=== PATIENT | female | born 1935 | race Caucasian/White ===

== ENCOUNTER 2018-09-05 18:56 | Inpatient (IN) ==
[2018-09-05 20:18] LABS: URINE SOURCE CATH
[2018-09-05 20:25] LABS: BASO# 0.02 X1000 (0.0-0.2); BASO% 0.1 % (0.0-0.8); EOS# 0.02 X1000 (0.0-0.7); EOS% 0.1 % (0.0-10.0); HEMATOCRIT 48.3 % (37.0-47.0); HEMOGLOBIN 16.2 g/dL (12.0-16.0); IMM GRAN# 0.08 X1000 (0.0-0.04); IMM GRAN% 0.4 % (0.0-0.5); LYMPH% 3.7 % (20.5-51.1); MCH 29.9 PG (27-31); MCHC 33.5 g/dL (33-37); MCV 89.1 FL (81-99); MONO# 1.56 X1000 (0.11-0.59); MONO% 8.3 % (1.7-9.3); MPV 10.3 FL (7.4-10.4); NEUT% 87.4 % (42.2-75.2); PLT 331 X1000 (130-400); RBC 5.42 XMIL (4.2-5.4); RDW 15.2 % (11.5-14.5); WBC 18.88 X1000 (4.8-10.8)
[2018-09-05 20:27] LABS: BILIRUBIN URINE SMALL (NEGATIVE); BLOOD URINE NEGATIVE (NEGATIVE); COLOR ORANGE; GLUCOSE URINE NEGATIVE (NEGATIVE); KETONE URINE NEGATIVE (NEGATIVE); LEUKOCYTES URINE NEGATIVE (NEGATIVE); NITRITE URINE NEGATIVE (NEGATIVE); PROTEIN URINE TRACE mg/dL (NEGATIVE); TURBIDITY URINE HAZY (CLEAR); UROBILINOGEN URINE 6 mg/dL (NORMAL)
[2018-09-05 20:32] LABS: UR EPITHELIAL CELLS <10 /HPF (<10); URINE BACTERIA NEGATIVE /HPF; URINE RBC <10 /HPF (<10); URINE WBC <10 /HPF (<10)
[2018-09-05 20:40] LABS: URINE CASTS NONE SEEN; URINE YEAST NONE SEEN
[2018-09-05] MEDS ORDERED: NS IV ONE ×2 (20:51)
[2018-09-05] MEDS ORDERED: VANCOMYCIN 1 GM/NS 1 GM/250 ML IVPB IV ONE (20:52)
[2018-09-05] MEDS ORDERED: ZOSYN 3.375 GM in NS 50 ML IV ONE (20:52)
[2018-09-05 21:16] LABS: ALB/GLOB RATIO 0.9; ALBUMIN 3.9 g/dL (3.5-5.0); CREATININE 1.7 mg/dL (0.5-0.9); POTASSIUM 4.1 mmol/L (3.5-5.1); TOTAL BILIRUBIN 1.13 mg/dL (0.20-1.00); TOTAL PROTEIN 8.4 g/dL (6.3-8.3)
--- NOTE | 2018-09-05 21:57 | Diag Imaging Result Doc PS360 ---
EXAM: CHEST-1 VIEW INDICATION: pale, has crackles TECHNIQUE: One view COMPARISON: 07/16/2013 FINDINGS: There is marked distention of the colon. This causing elevation of the right hemidiaphragm. There are thickened interstitial markings throughout both lungs similar to the previous study likely representing fibrosis. A component of edema is also possible. Cardiac silhouette is stable. IMPRESSION: 1.Marked distention of the colon. 2.Fibrotic changes and possible superimposed edema throughout both lungs. Electronically signed by Phong Daniel 09/05/2018 9:54 PM
[2018-09-05] MEDS ORDERED: NS 0 ML ONE (22:22)
[2018-09-05] MEDS ORDERED: ZOFRAN IV PRN (22:43)
[2018-09-05] MEDS ORDERED: PEPCID IV ONE (22:52)
[2018-09-05] MEDS ORDERED: SODIUM CHLORIDE 0.9% INJ ONE (22:52)
[2018-09-05] MEDS ORDERED: LEVOPHED 8 MG in D5 1/2 NS 250 ML IV SCH (23:45)
[2018-09-05] MEDS ORDERED: NS 250 ML IV ONE (23:47)
[2018-09-05 23:48] LABS: INR 1.49; PROTIME 19.1 Seconds (11.0-16.0)
[2018-09-06] MEDS: NS 1,000 ML IV SCH ×3 (01:36→13:49)
[2018-09-06 02:27] LABS: CHOLESTEROL 124 mg/dL (0-200); HDL 42 mg/dL (45-65); LDL 59 mg/dL; TRIGLYCERIDES 116 mg/dL (35-135); VLDL 23 mg/dL
[2018-09-06] MEDS: ZOSYN 2.25 GM in NS 50 ML IV SCH ×4 (02:48→21:04)
--- NOTE | 2018-09-06 02:56 | HISTORY AND PHYSICAL ---
CHIEF COMPLAINT: Abdominal pain, nausea and vomiting. HISTORY OF PRESENT ILLNESS: Ms. Blackman is an 83-year-old female who previously saw Alexandra Beckford MD, outpatient. I believe that she stopped taking all medications and following up with any physician around 4 years ago. The family, as well as her, are poor historians about her previous medical history. She was on oxygen daily which she stopped using, however, they were unable to tell me why. She also has a history of hypertension and hyperlipidemia, however, she stopped taking those medications as well. She states that she has had no other medical problems in the past. The , who is at the bedside, tells me that they were at home and up until yesterday she had had normal days. Yesterday she was up reading the paper. She ate breakfast as usual. Afterwards she had some vomiting. She had 1 more episode of vomiting yesterday. Some time during the night she had a small episode, and then today she had another episode of emesis which was on her shirt that the son was able to see. He felt as if "it looked like chocolate pudding," in his own words. On arrival to the emergency room the patient was tachycardic and tachypneic. She was not febrile; however, the stated that she had had a high fever the last couple of days. CT scan showed dilated loops of bowel with a large colonic stool burden. The rectum was markedly distended with stool, measuring 8 cm, questionable fecal impaction. Also, pneumatosis coli was noted; however, it stated that there were no inflammatory changes or thickening of the wall to suggest ischemia. Also noted were some fibrotic changes in her lower lungs. The patient will be admitted to ICU for further monitoring and evaluation. PAST MEDICAL HISTORY: See HPI. PREVIOUS SURGICAL HISTORY: Some type of hernia repair many years ago per the family. SOCIAL HISTORY: No tobacco, alcohol or illicit drugs. Still lives at home with her . FAMILY HISTORY: Hypertension and CVA in first-degree relatives. ALLERGIES: No known drug allergies. HOME MEDICATION: No medications. REVIEW OF SYSTEMS: Fourteen-point review of systems was conducted with the patient. She was positive for fever, chills, nausea, vomiting, abdominal pain. All other systems were evaluated and negative. PHYSICAL EXAMINATION: VITAL SIGNS: Temperature 98.6, pulse 114, respirations 25-33, blood pressure 103/75, oxygen saturation 94% on 2 nasal cannula. GENERAL: Chronically ill-appearing 83-year-old female lying in the ER stretcher, is oriented to person, place and situation, disoriented to time. Answers all questions for the most part appropriately. Family is at the bedside, supportive. She is in minimal distress at this time. HEENT: Head is atraumatic, normocephalic. Pupils equal, round, reactive to light. Extraocular eye movements intact. Sclerae are mildly jaundiced. Conjunctivae are pink. Oral mucosa is dry. NECK: Supple. No JVD. No thyromegaly. Trachea is midline. No cervical lymphadenopathy. CARDIAC: S1, S2 appreciated. No murmurs, gallops or rubs. LUNGS: Mild crepitations scattered throughout the lung jorgensen, decreased bilaterally. No rhonchi, no wheezing. Symmetric rise and fall with respirations. ABDOMEN: Soft, mildly distended, diffusely tender to palpation. Bowel sounds hypoactive in all 4 quadrants. No organomegaly. EXTREMITIES: No clubbing, cyanosis or edema. One-plus pedal pulses bilaterally. GENITOURINARY: Deferred. SKIN: Very dry and flaky, otherwise intact and warm. No acute lesions or rash were noted. NEUROLOGICAL: Oriented to person, place and situation. Disoriented to time. She is awake and alert. No focal motor deficits. Otherwise nonfocal examination. DIAGNOSTIC DATA: CT of the abdomen: Please see HPI. Also note that there was an abdominal aortic aneurysm measuring 5.9 cm in diameter with no evidence of rupture. LABORATORY DATA: WBC 18.88, hemoglobin 16.2, hematocrit 48.3, platelet count 331,000. Sodium 135, potassium 4.1, chloride 89, carbon dioxide 20, BUN 66, creatinine 1.7, glucose 118. Total bilirubin 1.13. Plasma lactate 5.3. On recheck it was 3.7. Urine unremarkable. ASSESSMENT AND PLAN: 1. Probable sepsis. We assume that this is originating from the abdomen. She was given Zosyn and vancomycin in the emergency room. Blood cultures have been sent. Will continue Zosyn renally dosed while cultures are pending. 2. Constipation with multiple dilated loops of bowel. Questionable partial small-bowel obstruction. Will place a nasogastric tube, consult Gastroenterology as well as Surgery. Continue IV fluids. 3. Fluid volume depletion. The patient was bolused in the emergency room, as noted. Will be continued in ICU. 4. History of hypertension, now hypotensive. Will add Levophed to the patient's profile to be started per protocol if necessary. Fluid rehydration has been started. 5. Abdominal aortic aneurysm noted at 5.9 cm in diameter. This will need to be followed up by Primary Care. 6. Acute kidney injury. No baseline renal function is in the computer. Unsure what the patient's normal renal function is. This appears to be acute in nature, however, with the patient having vomiting, will recheck laboratory data tomorrow morning. 7. Further recommendations per patient's clinical course. Dictated by GARETH Colon for Dominique Elder MD cc: GARETH Colon MD M. Neel Roberts, MD Pt's exam notable for decreased skin turgor with decreased pulse volume. She had significant tenderness without peritonism. Abd. was also distended. Irregular rhythm. Above plan discussed with [facility]. HOME
[2018-09-06] MEDS ORDERED: HALDOL IV ONE (05:14)
[2018-09-06] MEDS ORDERED: NS 500 ML IV ONE ×2 (05:16→12:09)
[2018-09-06 06:09] LABS: BASO# 0.01 X1000 (0.0-0.2); BASO% 0.1 % (0.0-0.8); HEMATOCRIT 43.7 % (37.0-47.0); HEMOGLOBIN 14.7 g/dL (12.0-16.0); IMM GRAN# 0.05 X1000 (0.0-0.04); IMM GRAN% 0.5 % (0.0-0.5); LYMPH# 0.44 X1000 (1.2-3.4); LYMPH% 4.5 % (20.5-51.1); MCH 30.4 PG (27-31); MCHC 33.6 g/dL (33-37); MCV 90.3 FL (81-99); MONO# 0.38 X1000 (0.11-0.59); MONO% 3.9 % (1.7-9.3); MPV 10.1 FL (7.4-10.4); PLT 244 X1000 (130-400); RBC 4.84 XMIL (4.2-5.4); RDW 15.3 % (11.5-14.5); WBC 9.68 X1000 (4.8-10.8)
[2018-09-06 06:27] LABS: CALCIUM 7.8 mg/dL (8.8-10.2); CREATININE 1.5 mg/dL (0.5-0.9); MAGNESIUM 2.5 mg/dL (1.5-2.7); POTASSIUM 3.6 mmol/L (3.5-5.1)
[2018-09-06 06:32] LABS: LYMPHS 5 % (21-51); MONO 5 % (1-9); SEGS 90 % (42-75)
[2018-09-06 07:05] LABS: URINE SOURCE CATH
--- NOTE | 2018-09-06 07:17 | Diag Imaging Result Doc PS360 ---
EXAM: CT ABDOMEN/PELVIS W/O CONTRAST 09/05/2018 HISTORY: abd distended, vomiting /Dr Whitehead verbal w/o gfr 29 TECHNIQUE: This exam was performed using automated exposure control, adjustment of mA or kV according to patient size, and/or use of iterative reconstruction technique. COMMENT: There are no previous abdominal studies available for comparison. Where possible comparison is made with the previous thoracic CT of 08/07/2012. There is some subpleural fibrosis present particularly in the lower lobes, where there is traction bronchiectasis and honeycombing. These findings were also present at the time the previous study. There are retained esophageal fluid and solid contents. There is a large hiatal hernia. The stomach is somewhat distended with fluid. There is a fairly large amount of gas and some fecal debris throughout the colon. There is a large amount of stool present in the distended rectum. There is diverticulosis coli without evidence of acute diverticulitis. The urinary bladder is distended. There is mild bilateral hydronephrosis. There are bilateral renal cysts the largest on the right side is over 10.4 cm in diameter. There is extensive atherosclerotic calcification in the aorta. There is an infrarenal abdominal aortic aneurysm which measures in excess of 6.2 cm. This was not previously imaged. The small bowel is not distended. There is no evidence of free air or free fluid. There are severe degenerative changes in the right hip. There are degenerative disc changes in the lumbar spine. There is no evidence of acute bony abnormality. IMPRESSION: 1. Severe constipation and fecal impaction. 2. Distended urinary bladder and mild bilateral hydronephrosis probably a result of urinary retention. 3. Abdominal aortic aneurysm in excess of 6 cm. 4. Pulmonary fibrosis. Electronically signed by Robert Domingo 09/06/2018 7:14 AM
[2018-09-06 07:18] LABS: BILIRUBIN URINE SMALL (NEGATIVE); BLOOD URINE NEGATIVE (NEGATIVE); COLOR ORANGE; GLUCOSE URINE NEGATIVE (NEGATIVE); KETONE URINE NEGATIVE (NEGATIVE); LEUKOCYTES URINE TRACE (NEGATIVE); NITRITE URINE NEGATIVE (NEGATIVE); PROTEIN URINE 30 mg/dL (NEGATIVE); SP GRAVITY URINE 1.022; TURBIDITY URINE HAZY (CLEAR); UR EPITHELIAL CELLS >10 /HPF (<10); URINE BACTERIA NEGATIVE /HPF; URINE RBC <10 /HPF (<10); URINE WBC <10 /HPF (<10); UROBILINOGEN URINE 4 mg/dL (NORMAL)
[2018-09-06 07:24] LABS: URINE YEAST PRESENT
[2018-09-06 07:25] LABS: URINE CASTS GRANULAR PRESENT; URINE CRYSTALS NONE SEEN; URINE SMALL ROUND CELLS NONE SEEN
--- NOTE | 2018-09-06 07:26 | EKG Report ---
Test Performed on : 09/06/2018 06:43:50 AM Test Reason : chest pain Blood Pressure : / mmHG Vent. Rate : 112 BPM Atrial Rate : 112 BPM P-R Int : 150 ms QRS Dur : 126 ms QT Int : 340 ms P-R-T Axes : 090 049 248 degrees QTc Int : 464 ms Sinus tachycardia. with premature supraventricular complexes. Right bundle branch block T wave abnormality, consider inferolateral ischemia Abnormal ECG When compared with ECG of 05-SEP-2018 20:53, (Unconfirmed) T wave inversion now evident in Inferior leads T wave inversion now evident in Lateral leads Confirmed by Oz MARTINEZ, Miles Mccann ([id number]) on 09/06/2018 5:09:40 PM
--- NOTE | 2018-09-06 07:47 | EKG Report ---
Test Performed on : 09/05/2018 8:53:19 PM Test Reason : pale, tachy Blood Pressure : / mmHG Vent. Rate : 119 BPM Atrial Rate : 119 BPM P-R Int : 168 ms QRS Dur : 122 ms QT Int : 356 ms P-R-T Axes : 077 001 054 degrees QTc Int : 500 ms Sinus tachycardia. with premature atrial complexes. Right bundle branch block Possible Lateral infarct , age undetermined Abnormal ECG No previous ECGs available Unconfirmed Result
--- NOTE | 2018-09-06 07:57 | Diag Imaging Result Doc PS360 ---
EXAM: CHEST-PORTABLE INDICATION: TUBE PLACEMENT TECHNIQUE: One view COMPARISON: 09/05/2018 FINDINGS: The NG tube is coiled above the diaphragm and is assumed to be in the lumen of a large hiatal hernia that can be seen on a recent CT. Interstitial thickening bilaterally suggesting fibrosis is unchanged. No new consolidation is identified. Cardiac silhouette is stable. IMPRESSION: Interval placement of NG tube as described above. Electronically signed by Phong Daniel 09/06/2018 7:55 AM
[2018-09-06] MEDS ORDERED: PHENERGAN IV PRN (08:10)
[2018-09-06] MEDS ORDERED: SODIUM CHLORIDE 0.9% INJ PRN (08:10)
[2018-09-06] MEDS ORDERED: ATIVAN IV PRN (08:11)
[2018-09-06] MEDS ORDERED: SODIUM CHLORIDE 0.9% INJ SCH (08:15)
[2018-09-06] MEDS ORDERED: PEPCID IV SCH (08:15)
[2018-09-06] MEDS ORDERED: LEVAQUIN 250 MG/D5W 250 MG/50 ML IVPB IV SCH (08:15)
--- NOTE | 2018-09-06 08:38 | PROGRESS NOTE ---
DATE: 09/06/2018 SUBJECTIVE: Ms Blackman is awake and easily arousable. She answers questions appropriately. She is oriented to name and place. She knew me. She was admitted with sepsis syndrome. She remains tachycardic, heart rates ranging from 104 to 111. She is tachypneic. Blood pressures have been low. Her MAP pressures were in the 50s. Chest x-ray showed severe pulmonary fibrosis. She does have bronchiectasis but stopped taking all of her medicines. Urine and blood cultures are pending. CT scan of the abdomen and pelvis demonstrated a fecal impaction but no obvious evidence of obstruction or abscess. She had had intractable nausea and vomiting. The nausea has improved with placement of an NG tube. She is maintaining O2 saturations of 91 to 93 percent on 2 L of O2. OBJECTIVE: Vital signs: Temperature 97.6 degrees, pulse 111, respiratory rate 38, blood pressure 94/58. General: This is a chronically ill-appearing, 83-year-old lady. She is awake and easily arousable. She is oriented to name and place. She answers questions appropriately. Cardiovascular: Tachycardic. Regular S1, S2. Lungs: Distant breath sounds with increased period of expiration with crackles in the right base. Abdomen: Distended with hypoactive bowel sounds. Extremities: Trace edema. LABORATORY DATA: A CBC demonstrated a white count of 9.68, hemoglobin 14.7, hematocrit 43.7, and a platelet count of 244,000. Electrolytes demonstrated the following. Sodium 135, potassium 3.6, chloride 97, CO2 20, BUN 65, creatinine 1.5, glucose 92. ASSESSMENT AND PLAN: 1. Severe sepsis. She continues to be tachycardic and tachypneic. She has renal dysfunction. Her creatinine was 1.7 on admission. Creatinine is down to 1.5. Her MAP pressures are low. She is now all requiring Levophed for pressure support. Given the nausea and vomiting, I suspect that she has aspirated. We will continue Zosyn and I will add intravenous Levaquin. She received a dosage of vancomycin last night. We will continue supplemental O2 and I will add nebulizer treatments. 2. Ileus. We will continue an NG tube to low [place] suction and I will recheck a flat and upright abdominal film in the morning. 3. Large abdominal aortic aneurysm. She has an abdominal aneurysm of 6.2. Given the size of the aneurysm, she is certainly at high risk for rupture. At this point in time, I believe that she would be an extraordinarily high surgical risk and in fact, I do not believe that she will ever be an appropriate surgical candidate. cc: Alexandra Beckford MD
[2018-09-06] MEDS ORDERED: DULCOLAX PR SCH (12:15)
--- NOTE | 2018-09-06 12:19 | Diag Imaging Result Doc PS360 ---
EXAM: KUB ABDOMEN 09/06/2018 HISTORY: evaluate for constipation or obstruction TECHNIQUE: KUB COMMENT: There is a large amount of gas and stool in the colon including the rectum. There is a calcified fusiform abdominal aortic aneurysm which has been previously described on CT on 09/05/2018. IMPRESSION: Severe constipation. Electronically signed by Robert Domingo 09/06/2018 12:17 PM
--- NOTE | 2018-09-06 14:17 | GASTROENTEROLOGY CONSULTATION ---
DATE: 09/06/2018 REQUESTING PHYSICIAN: Alexandra Beckford MD REASON FOR CONSULTATION: Constipation, bowel distention. HISTORY OF PRESENT ILLNESS: Ms. Blackman is an 83-year-old female, who was admitted on 09/06/2018 for worsening abdominal pain, nausea, vomiting, abdominal distention. She had a CT scan done on 08/30/2018 which showed: 1. Severe constipation and fecal impaction. 2. Retained esophageal fluid and solid contents. 3. Large hiatal hernia. 4. Some subpleural fibrosis in the lower lobes in the lungs and traction bronchiectasis and honeycombing. 5. Stomach is somewhat distended with fluid. 6. Fairly large amount of gas and some fecal debris throughout the colon. There was a large amount of stool present in the distended rectum. There is diverticulosis coli without evidence of acute diverticulitis. There is mild bilateral hydronephrosis. There are bilateral renal cysts; the largest on the right side is over 10.4 cm. There is extensive atherosclerotic calcification in the aorta. There is infrarenal abdominal aortic aneurysm measuring 6.2 cm which was not seen or previously imaged. There is no evidence of free air or free fluid. There are severe degenerative changes in the right hip. There are degenerative disk changes in the lumbar spine. 7. Gastrointestinal bleed with further management. The patient has decline in respiratory status. She is on a full face mask. She had NG tube placed recently. She had some coffee- grounds in the NG tube. The history is obtained from the patient's records and the nursing staff. The patient could not provide me any information. PAST MEDICAL HISTORY: Hypertension, hyperlipidemia. PAST SURGICAL HISTORY: Hernia surgery. SOCIAL HISTORY: No history of alcohol, tobacco, illicit drugs. She lives at home with her . FAMILY HISTORY: Hypertension, CVA in first-degree relatives. ALLERGIES: No known drug allergies. MEDICATIONS IN THE HOSPITAL: Pepcid b.i.d., Levaquin, dextrose, norepinephrine drip, Ativan, normal saline, Phenergan, Zosyn and she is currently n.p.o. REVIEW OF SYSTEMS: Could not be obtained. The patient did not answer any questions. PHYSICAL EXAMINATION: Vital Signs: Temperature 97.2, pulse 116, respiratory of 37, blood pressure 135/49, satting 98% on Ventimask 50% FiO2. Body weight of 132 pounds 3.2 ounces. BMI 23.4 kg/m2. General: Moderately well-nourished, lying in bed, currently tachypneic on a face mask. NG tube in place. HEENT: No pallor. No icterus. Signs of tachypnea noted. Face mask noted in place. NG tube noted in place. Was draining coffee-ground liquid. Abdomen: Distended, tympanic on percussion. No guarding. Extremities: No cyanosis, clubbing. Neurologic: Neuro-valladares, she did not answer any of my questions. Her eyes are open, but she was not communicating. LABS: Hemoglobin and hematocrit is 14.7 and 43.7, white count of 9.68, platelet count of 244, MCV of 90.3. Sodium 135, potassium 3.6, chloride 97, bicarbonate 20, anion gap 18. BUN of 65, creatinine 1.5, glucose of 92, calcium 7.8, magnesium 2.5, total bilirubin 1.13. AST 36, ALT 30, alkaline phosphatase 130, total protein is 8.4, albumin of 3.9. Lactate of 4.1. Urinalysis: Small bilirubin. Trace leukocytes and trace protein. MICROBIOLOGY: Urine culture is currently pending. Blood culture is currently pending. Stool for occult blood was negative. IMAGING: In the CT scan described in HPI. We will obtain a KUB today. IMPRESSION AND PLAN: 1. Sepsis. 2. Abdominal distention. 3. Fecal impaction in the left colon and rectum. 4. Bowel obstruction from fecal impaction. 5. Large abdominal aortic aneurysm. 6. Diverticulosis in the colon 7. Mild bilateral hydronephrosis and distended urinary bladder. 8. Question of a urinary tract infection. 9. Pulmonary fibrosis. RECOMMENDATIONS: We will continue with aggressive resuscitation. She will continue IV fluids. We will keep her on IV Pepcid b.i.d. She will continue antibiotics per the primary care team. She has been [place] cultured. We will try some tap water enemas to help with the rectal impaction. She will continue on NG tube intermittent suction. The patient is critical at this time. We will check a KUB today and tomorrow. We will need to follow closely. The above plans discussed with the patient's nursing staff at bedside. All questions answered. We will follow along. Please call us with any further questions. cc: MD Alexandra Tbaares MD MTDD
--- NOTE | 2018-09-06 14:47 | INFECTIOUS DISEASE CONSULT REP ---
DATE: 09/06/2018 CONCLUSION: The patient is admitted to the hospital in what seems to be a septic condition. I suspect that most likely it is due to a blocked urinary tract even though the patient's urinalysis did not show white cells or bacteria. RECOMMENDATIONS: In view of how the patient's white blood cell count has improved and the creatinine has improved, I think it is very reasonable to continue with the patient's 2 antibiotics she is getting now which are Zosyn and Levaquin. I have ordered a bilateral renal ultrasound to make sure that the patient's hydronephrosis has resolved after a [place] catheter was inserted into the bladder, which initially was distended as well. DISCUSSION: The patient was unable provide a history. I obtained the history from the patient's son. The patient was doing well up until approximately 3 days ago when she became weak and had vomiting. She did not complain of dysuria. She had not had any fever or chills. She had not had diarrhea. Studies thus far show the initial white blood cell count was [address] and today it is 9680, hemoglobin is 14.7, platelet count is 244,000. The patient's initial creatinine was 1.7 and today it is 1.5, and the GFR has gone from 29 to 33. Liver function studies show a slight elevation of the alkaline phosphatase at 130 and the AST at 36. As mentioned above, the urinalysis did not show any white cells or bacteria. The patient's chest x-ray showed bilateral fibrosis. CT scan of the abdomen and pelvis showed severe constipation with fecal impaction and a distended bladder with bilateral hydronephrosis. Also, there was an abdominal aortic aneurysm that was greater than 6 cm and also pulmonary fibrosis was noted in the lungs. PAST MEDICAL HISTORY/REVIEW OF SYSTEMS: This was unable to be obtained from the patient. WIRE REPAIRER HISTORY: She is a 4, para 4, AB 0. PREVIOUS HOSPITALIZATIONS AND OPERATIONS: She has had labor and deliveries and a hiatal hernia repair. MEDICAL DISEASES: Positive for hypertension and now for, in addition to that, an abdominal aortic aneurysm. INFECTIOUS DISEASE HISTORY: Negative for pneumonia and UTI. FAMILY HISTORY: Positive for hypertension and stroke. SOCIAL HISTORY: The patient is . She lives in [place]. She does not smoke cigarettes, drink alcoholic beverages or abuse drugs. Approximately 3 years ago, she stopped taking all of her medications. She does not have any pets. PHYSICAL EXAMINATION: Vital signs: Temperature is 97.2 degrees, pulse 116, respirations 37, blood pressure 125/49. Patient is 5 feet 3 inches tall, she weighs 132 pounds. General: This is an ill-appearing elderly female. She is in no acute distress, however. Head/eyes/ears/nose/throat: She did not follow my request to move her arms or to close her eyes. There is no drainage from the nose or ears. Neck: No meningismus. Lungs: Clear to auscultation. Cardiovascular: Heart rate was regular. Abdomen: Soft and nontender. Neurologic: The patient appeared to be in a delirium. She, as mentioned above, did not follow request to move her arms or legs or to close her eyelids. There was no tremor. Integument: No rash was noted. I am signing off the patient's case but I am available to see her prn. Thank you for the consult. cc: MD Alexandra Sanchez MD MTDD
[2018-09-06] MEDS ORDERED: MORPHINE IV PRN (17:28)
--- NOTE | 2018-09-06 18:01 | PROGRESS NOTE ---
DATE: 09/06/2018 Mrs. Blackman was admitted to [facility] with aspiration pneumonitis in association with severe sepsis. Unfortunately, she has deteriorated during the day. They tried to wean her off the Levophed, but her pressures dropped greatly. They resumed Levophed. She is currently on Levophed 9 mcg per minute, and her blood pressures are marginal with systolics in the low 90s. Creatinine has improved from 1.7 to 1.5. She has had nearly 1620 mL of urine output. She is having increasing shortness of breath. She had O2 saturations drop into the 80s. We have had to increase her to 80% O2. OBJECTIVE: Temperature 97.2 degrees, pulse 116, respiratory rate 37, BP 96/40. Cardiovascular: Tachycardic, regular S1, S2. Lungs: Crackles in the bases bilaterally. Abdomen: Soft, but mildly distended with hypoactive bowel sounds. ASSESSMENT AND PLAN: Acute respiratory failure secondary to aspiration pneumonitis with severe sepsis. She does have underlying pulmonary fibrosis and bronchiectasis. She has deteriorated clinically during the course of the day. She is requiring increasing oxygen requirements. She has been unable to maintain blood pressure without pressors and fluid resuscitation. She is much more lethargic and difficult to arouse. I had a long discussion with Mr. Blackman and their daughter. They understand that Ms. Blackman is critically ill. We will continue with aggressive measures in the hopes that Ms. Blackman will make the recovery room. I talked to the family about withdrawal of care in the event that she continues to deteriorate in spite of aggressive medical therapy. They want to keep her as comfortable as possible. We have established a No Code Blue Level 1. cc: Alexandra Beckford MD
[2018-09-06 18:16] LABS: ALLEN TEST NO; BE -19.9 mmoll (-3.0-3.0); BLOOD TYPE ARTERIAL; HCO3-(ACT) 9.4 mmoll (20.0-26.0); METHB 1.6 % (0.0-1.5); O2(CT) 18.3 mL/dL (15.0-23.0); O2HB 96.5 % (95.0-99.0); PCO2(98.6) 47 mmHg (35-45); PO2(98.6) 152 mmHg (60-100); SAMPLE BLOOD; SAO2 99.3 % (95.0-100.0); THB 13.3 g/dL (11.5-17.4)
[2018-09-06 18:19] LABS: MODALITY PRB; pH(98.6) 6.99 (7.35-7.45)
[2018-09-06] MEDS ORDERED: SODIUM BICARBONATE 8.4% IV PUSH ONE (18:30)
[2018-09-06] MEDS ORDERED: SODIUM BICARBONATE 8.4% 50 MEQ in NS 1,000 ML IV SCH ×4 (18:30)
--- NOTE | 2018-09-06 18:30 | Diag Imaging Result Doc PS360 ---
EXAM: US RENAL 2 (RETROPER) COMPLETE 09/06/2018 HISTORY: bilateral hydronephrosis TECHNIQUE: Renal ultrasound COMMENT: The study is markedly suboptimal. A 12.9 cm cyst is demonstrated on the right and no renal parenchyma is demonstrated on either side. The technologist was unable to establish an effective sonographic window. Some of this is presumably due to the large amount of colonic gas and stool was demonstrated on the previous study (CT) of 09/05/2018. IMPRESSION: Nondiagnostic exam. Electronically signed by Robert Domingo 09/06/2018 6:28 PM
--- NOTE | 2018-09-06 20:26 | CONSULTATION ---
DATE OF CONSULTATION: 09/06/2018 HISTORY OF PRESENT ILLNESS: This is an 83-year-old female who was admitted for worsening abdominal discomfort, distention, nausea. She was found to have severe fecal impaction and was admitted to ICU. She has a large hiatal hernia. I have spoken with her son. Most of the history is obtained. He says she has not left her house in 6 months. She is very debilitated for the most part and only walks from the bedroom to the bathroom, and mostly sits on the couch daily. She has a known abdominal aortic aneurysm that is upwards of 6 cm. She also apparently had some emesis that seemed to have coffee-ground type changes. She was admitted, NG tube was placed as well as a rectal tube. She has been hemodynamically stable in the ICU. MEDICAL HISTORY: 1. Hypertension. 2. Hyperlipidemia. 3. Likely some degree of dementia. 4. Chronic debilitation. 5. Her colonoscopy history: The last one was at age 69, so almost 14 years ago. SURGICAL HISTORY: Unknown hernia repair. SOCIAL HISTORY: Lives at home with her , but for the most part does not leave the house. No tobacco, alcohol, or drugs. FAMILY HISTORY: Reviewed and negative for cancer. REVIEW OF SYSTEMS: Limited, but 10 point was negative. PHYSICAL EXAMINATION: Vital Signs: Overnight, I did not see fevers documented. Pulse has fluctuated from the 90s to low 110s. Blood pressure also has somewhat fluctuated. General: She is conversant and alert, but not really oriented to her situation. HEENT: There is a nasogastric tube in place with coffee-ground type drainage, possibly feculent. Cardiovascular: Sinus tachycardia. Pulmonary: No increased work of breathing, but is on nasal cannula. Abdomen: Distended, but soft. She palpates and seems to indicate that she has some tenderness on the left side, but no peritonitis. Integument: Warm, dry. Psychiatric: Appropriate affect, but is disoriented. Neurologic: Generalized weakness. Musculoskeletal: Cachexia. LABORATORY: White count was 18 on admission, is down to 9, hematocrit is 43, platelets 244,000. INR is 1.49. Creatinine is 1.7 to 1.5. Lactate was 3.[address] scan shows severe constipation with fecal impaction. No obvious mass. She has a 6 cm abdominal aneurysm, pulmonary fibrosis, hydronephrosis, possibly urinary retention in etiology. ASSESSMENT AND PLAN: This is an 83-year-old female with colonic distention, constipation, and possible gastrointestinal bleed. I have had a long and xochitl discussion with her son. He thinks she is in no way an operative candidate, and does not want to pursue surgical intervention. I think this is reasonable. Unfortunately, at this juncture, she would require a total abdominal colectomy with ileostomy. When I discussed this matter, they were understandably apprehensive to undergo this. She also has an asymptomatic 6 cm aneurysm that is low on the priority list right now. She has a nasogastric tube in place and a rectal tube. We will continue decompression enemas to hopefully promote bowel function and decompression, and we will monitor her closely, but a very guarded prognosis. cc: MD Alexandra Maldonado MD
[2018-09-06 22:01] VITALS: BP 99/62
--- NOTE | 2018-09-11 16:09 | PROVIDER DOCUMENTATION ---
This chart was entered by Suzanna Miller Scribe, acting as scribe for Silvio Whitehead MD. HPI-General Adult - General Chief Complaint: GI Bleed Stated Complaint: N/V/POSSIBLE GI BLEED Time Seen by Provider: 09/05/18 19:08 Source: patient Allergies/Adverse Reactions: Patient Allergies Allergy/AdvReac Type Severity Reaction Status Date / Time No Known Allergies Allergy Verified 09/05/18 20:27 - History of Present Illness -Gen Adult Nature of Presenting Problems: pt is a 83 yr old female presenting via EMS. pt reports pt has had vomit ing with black emesis x 2, fever, paleness x 1 day, pt complains only of blurred vision. pt last BM 2 days ago, reports fever improved with ibuprofen. pt only on Lasix currently, reports she stopped taking all other mediations 2+ yrs ago, family reports pt does not go to the doctor. pt denies any pain. Location of Pain/Injury: reports: none Pain Radiation: reports: no radiation Quality of Pain: reports: none Severity: reports: mild Onset/Duration: reports: 24 hours ago Timing: reports: intermittent Context/Activities at Onset: reports: rest Modifying Factors: improves with: analgesics (ibuprofen-relieved fever) Associated Symptoms: reports: constipation, EENT symptoms (blurred vision), fever/chills, vomiting. denies: back/neck pain, chest pain, diarrhea, shortness of breath Similar Symptoms Previously?: No Recently seen or treated by another doctor?: No Review of Systems - Adult - REVIEW OF SYSTEMS - ADULT Constitutional: reports: fever, fatique Eyes: reports: blurred vision Ears, Nose, Mouth & Throat: denies: ear pain, sinus problem, throat pain Cardiovascular: denies: chest pain, edema, palpitations, syncope Respiratory: denies: cough, shortness of breath, wheezing Gastrointestinal: reports: hematemesis, constipation, nausea, poor appetite, vomiting. denies: abdominal pain, diarrhea Genitourinary: reports: no symptoms reported Musculoskeletal: reports: no symptoms reported Integumentary: reports: no symptoms reported Neurological: denies: dizziness/vertigo, headache/migraines, syncope Psychiatric: reports: no symptoms reported Endocrine: reports: no symptoms reported Hematologic/Lymphatic: reports: no symptoms reported Allergic/Immunologic: reports: no symptoms reported All Other Systems: Reviewed and Negative Past History - Adult - PAST MEDICAL HISTORY-ADULT Review of Records: reports: Nursing Assessment Review, Medications Reviewed Major Childhood Illnesses: reports: denies history Cardiovascular: reports: denies history Respiratory: reports: denies history Gastrointestinal: reports: denies history Obstetrical/Gynecological: reports: denies history Genitourinary: reports: denies history Musculoskeletal: reports: denies history Neurological: reports: denies history Endocrine/Immune: reports: denies history Other Conditions: reports: denies history - IMMUNIZATION STATUS Childhood Immunizations: See Nurse Assessment Flu Vaccine: See Nurse Assessment - FAMILY HISTORY Family History: reviewed, not pertinent - SOCIAL HISTORY Living Situation: family Physical Exam-General - PHYSICAL EXAM-ADULT Initial Vital Signs Reviewed: Yes - CONSTITUTIONAL General Appearance: alert, no apparent distress - EYES Eyes: PERRL/EOMI, pink conjunctivae - HEAD, EARS, NOSE, MOUTH & THROAT HENMT: normocephalic/atraumatic, moist mucous membranes, normal ENT inspection - NECK Neck: non-tender, full range of motion, supple, normal inspection - RESPIRATORY Respiratory: chest non-tender, no pleuratic chest pain, no respiratory distress, no accessory muscle use, crackles (bibasilar crackles) - CARDIOVASCULAR Cardiovascular: normal peripheral pulses, regular rate, rhythm, no edema - GASTROINTESTINAL (ABDOMEN) Abdominal Exam: normal bowel sounds, non tender, soft - LYMPHATIC Lymphatic: no adenopathy - MUSCULOSKELETAL Back Exam: normal inspection, no CVA tenderness, no vertebral tenderness Extremity: normal range of motion, non-tender - SKIN Integumentary: normal color, normal turgor, warm/dry - PSYCHIATRIC Psych/Mental Status: normal mood/affect Progress - PLAN OF CARE/RESULTS Progress/Plan/Lab Results: Vital Signs - 8 hr 09/05/18 19:16 Temperature 98.6 F Pulse Rate 110 H Respiratory Rate 19 Blood Pressure 101/54 O2 Sat by Pulse Oximetry 94 L Orders Category Date Time Status Nursing- Obtain EKG ONCE Care 09/05/18 19:33 Active CHEST-1 VIEW [RAD] Stat Exams 09/05/18 19:[address] ABD/PELVIS W/IV CONT ONLY [CT] Stat Exams 09/05/18 19:38 Ordered BLOOD CULTURE [BLDCUL] Stat Lab 09/05/18 19:35 Uncollected CBC WITH DIFF [HEME] Stat Lab 09/05/18 19:33 Uncollected COMPREHENSIVE METABOLIC PANEL [CHEM] Stat Lab 09/05/18 19:33 Uncollected LACTATE, PLASMA [CHEM] Stat Lab 09/05/18 19:35 Uncollected URINALYSIS W/POSS RFLX CULT [URINALYSIS] Stat Lab 09/05/18 19:35 Uncollected EKG [EKG] Stat Ther 09/05/18 19:33 Ordered Result Diagrams: 09/06/18 05:54 09/06/18 05:54 - EKG 1 Time of EKG reading by physician:: 20:53 EKG Read and Signed by:: Silvio Whitehead EKG Interpretation (*Must complete 3 of following elements*): Abnormal (poss lateral infarct-age undetermined) Rate: 119 Rhythm: sinus tachycardia with PACs QRS: RBB LA Interval: normal - CONSULTS/PCP/HOSPITALIST Notification #1 *Consult/PCP/Hospitalist*: [place] Time Discussed: 21:55 Consult Disposition: Will see in ED, Admit Departure - Departure Date of Disposition Decision: 09/05/18 Time of Disposition Decision: 20:50 DIAGNOSIS: Sepsis Qualifiers: Sepsis type: sepsis due to unspecified organism Qualified Code(s): A41.9 - Sepsis, unspecified organism Disposition: ADMITTED INPATIENT 09 Certified Medical Emergency: Emergent Condition: - Critical Care Note This patient required my direct & personal management of CC.: No Attestation - Physician/ HUGO Attestation Patient care was provided by Advanced Practice Provider:: No The physician spent face to face time with patient:: Yes Advanced Practice Provider documentation review:: Supervising physician onsite and consulted in the evaluation and care of this patient. The physician did have a face to face encounter with the patient. This chart was documented by the indicated scribe, (Suzanna Miller Scribe) and accurately reflects the services I performed and decisions made by me, Silvio Whitehead MD, as attested by the provider's signature.
--- NOTE | 2018-09-21 03:41 | DISCHARGE SUMMARY ---
ADMISSION DATE: 09/06/2018 DISCHARGE DATE: 09/06/2018 DATE OF : 09/06/2018. DISCHARGE DIAGNOSES: 1. Acute respiratory failure with hypoxia secondary to acute exacerbation of underlying bronchiectasis. 2. Aspiration pneumonia. 3. Severe sepsis with end-organ failure. 4. Acute renal failure. 5. Ileus. 6. Large abdominal aortic aneurysm. SUMMARY: Mrs. Lacey Blackman presented to the ER with a 3-day history of nausea, vomiting, fever as high as 101 degrees, cough and shortness of breath. A CT scan demonstrated dilated loops of bowel with large colonic stool burden. The rectum was markedly distended with stool. Chest x- rays demonstrated significant pulmonary fibrosis. She was initially tachycardic and tachypneic. She had renal dysfunction. Her creatinine was 1.7 on admission. Blood pressure was low. Her MAP pressures were around 50 with fluid resuscitation. Levophed was initiated for pressure support. She was initially placed on vancomycin and Zosyn and I added intravenous Levaquin. We continued an NG tube to low Gomco suction. She had an incidental finding of a large abdominal aortic aneurysm. I had long discussions with the family. They understood that Mrs. Blackman was critically ill. She had severe sepsis requiring supplemental oxygen, fluids and pressor support. She did have a previous living will and stated that in the event of a cardiopulmonary arrest that no heroic measures should be undertaken. A no code level 1 was established. In spite of aggressive medical therapy, she continued to deteriorate clinically. She had worsening mental status changes. She was requiring more and more pressors to maintain her blood pressure. The patient on 09/06/2018. cc: Alexandra Beckford MD
== END 2018-09-06 22:42 | disposition expired | DRG 871 ==
LOC: SUPCPDRO → ED 18:56 → ICU 09-06 01:24 → SUATTDRO 09-06 01:24
PROVIDERS: ADMIT Internal Medicine; ATTEND Internal Medicine
CPT/HCPCS: 51701; 51702; 71010; 71045; 74000; 74018; 74176; 76770; 80048; 80053; 80061; 81001; 82272; 82550; 82805; 83605; 83735; 84443; 84484; 85025; 85610; 85730; 87040; 87088; 93005; 93010; 96365; 96366; 96368; 96375; 99285; A9270; J1630; J1956; J2060; J2405; J2543; J3370; J7030; J7040; P9612; S0028